=== PATIENT | female | born 1940 | race Caucasian/White ===

== ENCOUNTER 2020-03-31 19:44 | Observation (INO) | payer MEDICARE, BC ==
[2020-03-31] MEDS ORDERED: ONDANSETRON 4 MG/2 ML VIAL IVP STA (20:25)
[2020-03-31] MEDS ORDERED: SODIUM CHLORIDE 0.9% 500 ML 500 ML IV STA (20:25)
[2020-03-31 20:45] LABS: Basophils # (A) 0.1 k/uL (0-0.2); Basophils % (A) 0 %; Eosinophils # (A) 0.1 k/uL (0-0.7); Eosinophils % (A) 1 %; HCT 41.6 % (34.0-46.0); HGB 14.4 gm/dL (11.4-16.0); Lymphocytes # (A) 0.7 k/uL (1.0-4.8); Lymphocytes % (A) 3 %; MCH 30.6 pg (25.0-35.0); MCHC 34.5 g/dL (31.0-37.0); MCV 88.6 fL (80.0-100.0); Mean Platelet Volume 7.1; Monocytes # (A) 0.7 k/uL (0-1.0); Monocytes % (A) 3 %; Neutrophils # (A) 18.4 k/uL (1.3-7.7); Neutrophils % (A) 92 %; Platelet Count 301 k/uL (150-450); RBC 4.69 m/uL (3.80-5.40); RDW 12.4 % (11.5-15.5)
[2020-03-31 20:48] LABS: Appearance,Urine Clear (Clear); Bilirubin,Urine Negative (Negative); Blood,Urine Negative (Negative); Color,Urine Yellow; Glucose,Urine (UA) Negative (Negative); Ketones,Urine Negative (Negative); Leukocyte Esterase,Urine Negative (Negative); Nitrite,Urine Negative (Negative); Protein,Urine Negative (Negative)
[2020-03-31 20:56] LABS: ALT 18 U/L (4-34); AST 24 U/L (14-36); African American GFR (CKD) >90 (>60 ml/min/1.73 sqM); Albumin 4.3 g/dL (3.5-5.0); Alkaline Phosphatase 94 U/L (38-126); Anion Gap 10 mmol/L; Blood Urea Nitrogen 20 mg/dL (7-17); Calcium 10.3 mg/dL (8.4-10.2); Carbon Dioxide 23 mmol/L (22-30); Chloride 100 mmol/L (98-107); Glucose 122 mg/dL (74-99); Lipase 70 U/L (23-300); Non-African American GFR(CKD) 87 (>60 ml/min/1.73 sqM); Sodium 133 mmol/L (137-145); Total Bilirubin 0.7 mg/dL (0.2-1.3)
[2020-03-31 21:00] LABS: INR 0.9 (<1.2); Prothrombin Time 10.1 sec (9.0-12.0)
[2020-03-31 21:03] LABS: Partial Thromboplastin Time 21.7 sec (22.0-30.0)
[2020-03-31] MEDS ORDERED: cefTRIAXone IN SWFI 1,000 MG/10 ML SYRINGE IVP STA (21:15)
[2020-03-31] MEDS ORDERED: metroNIDAZOLE-NS PMX 500 MG in SALINE 1 100ML.BAG IVPB STA (21:15)
--- NOTE | 2020-03-31 21:41 | CT ---
EXAMINATION TYPE: CT abdomen pelvis w con DATE OF EXAM: 03/31/2020 COMPARISON: None available. HISTORY: Abdominal pain, hx of ischemic colitis CT DLP: 661.2 mGycm Automated exposure control for dose reduction was used. TECHNIQUE: Helical acquisition of images was performed from the lung bases through the pelvis. CONTRAST: Performed without Oral Contrast and with IV Contrast, patient injected with 100 mL of Isovue 300. FINDINGS: LUNG BASES: No significant abnormality is appreciated. LIVER/GB: No significant abnormality is appreciated. PANCREAS: No significant abnormality is seen. SPLEEN: No significant abnormality is seen. ADRENALS: No significant abnormality is seen. 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 2 to 3 mm benign-appearing righ t renal cyst. FREE AIR: No free air is visualized. RETROPERITONEAL ADENOPATHY: None visualized REPRODUCTIVE ORGANS: No significant abnormality is seen URINARY BLADDER: No significant abnormality is seen. PELVIC ADENOPATHY: None visualized. OSSEOUS STRUCTURES: No acute abnormality is seen. Chronic appearing moderate T11 compression fractur e. BOWEL: Diffuse moderate wall thickening of the descending colon with mild surrounding fat stranding. No bowel obstruction, free air or fluid. Small hiatal hernia status post prior post surgical changes . Colonic diverticulosis. OTHER: None IMPRESSION: DIFFUSE WALL THICKENING OF THE DESCENDING COLON WITH ASSOCIATED MILD INFLAMMATORY CHANGES, COMPATIBLE WITH COLITIS IN THE APPROPRIATE CLINICAL SETTING. COLONOSCOPY CORRELATION MAY BE OBTAINED INDICAT ED. NO BOWEL OBSTRUCTION, FREE AIR OR FLUID. Chronic findings as above.
--- NOTE | 2020-03-31 22:12 | ED ---
Nausea/Vomiting/Diarrhea HPI - General Chief complaint: Nausea/Vomiting/Diarrhea Stated complaint: NVD Time Seen by Provider: 03/31/20 19:50 Source: patient Mode of arrival: ambulatory Limitations: no limitations - History of Present Illness Initial comments: 80-year-old female past medical history of hypertension, colitis, reflux and presents to the emergency department with reported left lower quadrant abdominal pain, nausea and vomiting. Reports that her symptoms started this morning. She was in [place] and had tickets to fly back to [place]. Reports that she spent the majority of the flight in the bathroom with nausea, dry heaves and diarrhea. Denies any black or bloody stools. No fevers or chills. Denies any changes in her urination. Previous history of appendectomy and hernia repair. States that she does have history of similar in the past as she has a history of ischemic colitis. Takes a baby aspirin at home for anticoagulation. No other alleviating, precipitating or modifying factors - Related Data Home Medications Medication Instructions Recorded Confirmed Calcium Citrate 250 mg PO DAILY 03/31/20 03/31/20 Cholecalciferol [Vitamin D3 (25 25 mcg PO DAILY 03/31/20 03/31/20 Mcg = 1000 Iu)] FLUoxetine HCL [PROzac] 10 mg PO TID 03/31/20 03/31/20 Fluticasone Nasal [place] [Flonase 1 spray EA NOSTRIL BID PRN 03/31/20 03/31/20 Nasal [place]] Ginkgo Biloba 500 mg PO DAILY 03/31/20 03/31/20 Glucosam/Oscar-Msm1/C/Jairon/Bosw 1 tab PO DAILY 03/31/20 03/31/20 [Glucosamine-Chondroitin Tablet] Hydrochlorothiazide 12.5 mg PO HS 03/31/20 03/31/20 [hydroCHLOROthiazide] Ibuprofen [Motrin Ib] 800 mg PO BID PRN 03/31/20 03/31/20 Losartan Potassium [Cozaar] 100 mg PO HS 03/31/20 03/31/20 Magnesium Oxide 400 mg PO DAILY 03/31/20 03/31/20 Multivitamins, Thera [Multivitamin 1 tab PO DAILY 03/31/20 03/31/20 (formulary)] Omeprazole 20 mg PO DAILY 03/31/20 03/31/20 Pravastatin Sodium 80 mg PO HS 03/31/20 03/31/20 Ubidecarenone [Co Q-10] 100 mg PO DAILY 03/31/20 03/31/20 Previous Rx's Medication Instructions Recorded Amoxic-Pot Clav 875-125Mg 1 tab PO BID 5 Days #10 tab 04/01/20 [Augmentin 875-125] Allergies Allergy/AdvReac Type Severity Reaction Status Date / Time levofloxacin [From Levaquin] Allergy Unknown Verified 03/31/20 22:11 Review of Systems ROS Statement: Those systems with pertinent positive or pertinent negative responses have been documented in the HPI. ROS Other: All systems not noted in ROS Statement are negative. Past Medical History Past Medical History: GERD/Reflux, Hypertension Additional Past Medical History / Comment(s): colitis History of Any Multi-Drug Resistant Organisms: None Reported Past Surgical History: Appendectomy, Hernia Repair, Orthopedic Surgery Past Psychological History: No Psychological Hx Reported Smoking Status: Former smoker Past Alcohol Use History: None Reported Past Drug Use History: None Reported General Exam Limitations: no limitations General appearance: alert, in no apparent distress Head exam: Present: atraumatic, normocephalic, normal inspection Eye exam: Present: normal appearance, PERRL, EOMI. Absent: scleral icterus, conjunctival injection, periorbital swelling ENT exam: Present: normal exam, mucous membranes moist Neck exam: Present: normal inspection. Absent: tenderness, meningismus, lymphadenopathy Respiratory exam: Present: normal lung sounds bilaterally. Absent: respiratory distress, wheezes, rales, rhonchi, stridor Cardiovascular Exam: Present: regular rate, normal rhythm, normal heart sounds. Absent: systolic murmur, diastolic murmur, rubs, gallop, clicks GI/Abdominal exam: Present: soft, tenderness (llq), normal bowel sounds. Absent: distended, guarding, rebound, rigid Extremities exam: Present: normal inspection, full ROM, normal capillary refill. Absent: tenderness, pedal edema, joint swelling, calf tenderness Back exam: Present: normal inspection Neurological exam: Present: alert, oriented X3, CN II-XII intact Psychiatric exam: Present: normal affect, normal mood Skin exam: Present: warm, dry, intact, normal color. Absent: rash Course Vital Signs 03/31/20 03/31/20 03/31/20 19:47 21:30 22:01 Temperature 98.6 F Pulse Rate 78 56 L 56 L Respiratory 18 20 20 Rate Blood Pressure 197/97 141/69 135/78 O2 Sat by Pulse 96 99 97 Oximetry 03/31/20 22:46 Temperature 98.0 F Pulse Rate 59 L Respiratory 20 Rate Blood Pressure 133/69 O2 Sat by Pulse 96 Oximetry Medical Decision Making - Medical Decision Making Upon arrival patient is placed into room 11. A thorough history and physical exam was performed. IV is established and the patient is given 4 mg of Zofran for nausea as well as a 500 bolus of normal saline. Laboratory studies are conducted. They are reviewed and demonstrated a white count of 20,000. Sodium 133. Patient is sent for CT of the abdomen and pelvis which demonstrates a descending colitis. Due to leukocytosis and mild hyponatremia I did recommend overnight observation for which the patient did agree to. Lactic acid normal at this time and therefore will hold off on anticoagulation. Spoke with Dr. Bryson who agreed to admit the patient. Rocephin and Flagyl ordered as well as blood cultures. Patient remained in stable condition awaiting a bed - Lab Data Result diagrams: 04/01/20 06:13 04/01/20 06:13 Lab Results 03/31/20 03/31/20 03/31/20 Range/Units 20:36 20:36 20:36 WBC 20.0 H (3.8-10.6) k/uL RBC 4.69 (3.80-5.40) m/uL Hgb 14.4 (11.4-16.0) gm/dL Hct 41.6 (34.0-46.0) % MCV 88.6 (80.0-100.0) fL MCH 30.6 (25.0-35.0) pg MCHC 34.5 (31.0-37.0) g/dL RDW 12.4 (11.5-15.5) % Plt Count 301 (150-450) k/uL MPV 7.1 Neutrophils % 92 % Lymphocytes % 3 % Monocytes % 3 % Eosinophils % 1 % Basophils % 0 % Neutrophils # 18.4 H (1.3-7.7) k/uL Lymphocytes # 0.7 L (1.0-4.8) k/uL Monocytes # 0.7 (0-1.0) k/uL Eosinophils # 0.1 (0-0.7) k/uL Basophils # 0.1 (0-0.2) k/uL PT 10.1 (9.0-12.0) sec INR 0.9 (<1.2) APTT 21.7 L (22.0-30.0) sec Sodium (137-145) mmol/L Potassium (3.5-5.1) mmol/L Chloride (98-107) mmol/L Carbon Dioxide (22-30) mmol/L Anion Gap mmol/L BUN (7-17) mg/dL Creatinine (0.52-1.04) mg/dL Est GFR (CKD-EPI)AfAm (>60 ml/min/1.73 sqM) Est GFR (CKD-EPI)NonAf (>60 ml/min/1.73 sqM) Glucose (74-99) mg/dL Plasma Lactic Acid Chris (0.7-2.0) mmol/L Calcium (8.4-10.2) mg/dL Total Bilirubin (0.2-1.3) mg/dL AST (14-36) U/L ALT (4-34) U/L Alkaline Phosphatase (38-126) U/L Total Protein (6.3-8.2) g/dL Albumin (3.5-5.0) g/dL Lipase (23-300) U/L Urine Color Yellow Urine Appearance Clear (Clear) Urine pH 7.0 (5.0-8.0) Ur Specific [place] 1.020 (1.001-1.035) Urine Protein Negative (Negative) Urine Glucose (UA) Negative (Negative) Urine Ketones Negative (Negative) Urine Blood Negative (Negative) Urine Nitrite Negative (Negative) Urine Bilirubin Negative (Negative) Urine Urobilinogen 2.0 (<2.0) mg/dL Ur Leukocyte Esterase Negative (Negative) Coronavirus (PCR) (Not Detectd) 03/31/20 03/31/20 03/31/20 Range/Units 20:36 20:36 22:09 WBC (3.8-10.6) k/uL RBC (3.80-5.40) m/uL Hgb (11.4-16.0) gm/dL Hct (34.0-46.0) % MCV (80.0-100.0) fL MCH (25.0-35.0) pg MCHC (31.0-37.0) g/dL RDW (11.5-15.5) % Plt Count (150-450) k/uL MPV Neutrophils % % Lymphocytes % % Monocytes % % Eosinophils % % Basophils % % Neutrophils # (1.3-7.7) k/uL Lymphocytes # (1.0-4.8) k/uL Monocytes # (0-1.0) k/uL Eosinophils # (0-0.7) k/uL Basophils # (0-0.2) k/uL PT (9.0-12.0) sec INR (<1.2) APTT (22.0-30.0) sec Sodium 133 L (137-145) mmol/L Potassium 4.0 (3.5-5.1) mmol/L Chloride 100 (98-107) mmol/L Carbon Dioxide 23 (22-30) mmol/L Anion Gap 10 mmol/L BUN 20 H (7-17) mg/dL Creatinine 0.62 (0.52-1.04) mg/dL Est GFR (CKD-EPI)AfAm >90 (>60 ml/min/1.73 sqM) Est GFR (CKD-EPI)NonAf 87 (>60 ml/min/1.73 sqM) Glucose 122 H (74-99) mg/dL Plasma Lactic Acid Chris 1.1 (0.7-2.0) mmol/L Calcium 10.3 H (8.4-10.2) mg/dL Total Bilirubin 0.7 (0.2-1.3) mg/dL AST 24 (14-36) U/L ALT 18 (4-34) U/L Alkaline Phosphatase 94 (38-126) U/L Total Protein 7.0 (6.3-8.2) g/dL Albumin 4.3 (3.5-5.0) g/dL Lipase 70 (23-300) U/L Urine Color Urine Appearance (Clear) Urine pH (5.0-8.0) Ur Specific [place] (1.001-1.035) Urine Protein (Negative) Urine Glucose (UA) (Negative) Urine Ketones (Negative) Urine Blood (Negative) Urine Nitrite (Negative) Urine Bilirubin (Negative) Urine Urobilinogen (<2.0) mg/dL Ur Leukocyte Esterase (Negative) Coronavirus (PCR) Not Detected (Not Detectd) Disposition Clinical Impression: Colitis, Leukocytosis, Abdominal pain Disposition: ADMITTED IP TO THIS HOSP Condition: Stable Is patient prescribed a controlled substance at d/c from ED?: No Decision to Admit Reason: Admit from EC Decision Date: 03/31/20 Decision Time: 22:19
[2020-03-31] MEDS ORDERED: NALOXONE 0.4 MG/ML 1 ML VIAL IV PRN (22:19)
[2020-03-31] MEDS ORDERED: ONDANSETRON 4 MG/2 ML VIAL IVP PRN (22:19)
[2020-03-31] MEDS ORDERED: SODIUM CHLORIDE 0.9% 500 ML 500 ML IV ONE (22:30)
[2020-03-31] MEDS: SODIUM CHLORIDE 0.9% 1,000 ML IV SCH (22:45)
[2020-03-31] MEDS ORDERED: ACETAMINOPHEN TAB 325 MG TAB PO STA (23:05)
[2020-04-01] MEDS ORDERED: MORPHINE SULFATE 2 MG/ML SYRINGE IVP PRN (01:54)
--- NOTE | 2020-04-01 01:54 | P.HPIM ---
History of Present Illness H&P Date: 03/31/20 Chief Complaint: diarrhea , abd pain 80 year old female with history of Hypertension , stroke , Ischemic colitis patient has been in [place] , and she was traveling back today, when suddenly at 10 in the morning , she started having watery diarrhea , she still traveled, but symptoms got worse, with nausea, dry heaving ,and frequent watery diarrhea, denies any bleeding . her last meal was the night before when she had dinner, her shared food and place with her, he is asymptomatic, she denies any fever, chills, or urinary changes. she denies any sick contacts. her flight was terrible due to these symptoms, and started having LLQ abd discomfort radiating to the rest of the belly, pain vague, 5/10 in severity , worse when she touches her belly. she denies any changes inher medications. after landing , her symptoms persisted, and she came straight to the hospital . she reports history of ischemic colitis years ago , and last colonoscopy was back in August , she was told that she has "ischemic changes" in the ED , workup showed elevated WBC, CT abd showed descending colitis , lactic acid negative , and vital signs stable patient admitted for GI eval, symptomatic control and IVF hydration , due to intractable nausea and vomiting Review of Systems Pertinent positives as noted in HPI. All other systems were reviewed and are negative Past Medical History Past Medical History: GERD/Reflux, Hypertension Additional Past Medical History / Comment(s): colitis History of Any Multi-Drug Resistant Organisms: None Reported Past Surgical History: Appendectomy, Hernia Repair, Orthopedic Surgery Past Psychological History: No Psychological Hx Reported Smoking Status: Former smoker Past Alcohol Use History: None Reported Past Drug Use History: None Reported Medications and Allergies Home Medications Medication Instructions Recorded Confirmed Type Calcium Citrate 250 mg PO DAILY 03/31/20 03/31/20 History Cholecalciferol [Vitamin D3 (25 25 mcg PO DAILY 03/31/20 03/31/20 History Mcg = 1000 Iu)] FLUoxetine HCL [PROzac] 10 mg PO TID 03/31/20 03/31/20 History Fluticasone Nasal [place] [Flonase 1 spray EA NOSTRIL BID PRN 03/31/20 03/31/20 History Nasal [place]] Ginkgo Biloba 500 mg PO DAILY 03/31/20 03/31/20 History Glucosam/Oscar-Msm1/C/Jairon/Bosw 1 tab PO DAILY 03/31/20 03/31/20 History [Glucosamine-Chondroitin Tablet] Hydrochlorothiazide 12.5 mg PO HS 03/31/20 03/31/20 History [hydroCHLOROthiazide] Ibuprofen [Motrin Ib] 800 mg PO BID PRN 03/31/20 03/31/20 History Losartan Potassium [Cozaar] 100 mg PO HS 03/31/20 03/31/20 History Magnesium Oxide 400 mg PO DAILY 03/31/20 03/31/20 History Multivitamins, Thera [Multivitamin 1 tab PO DAILY 03/31/20 03/31/20 History (formulary)] Omeprazole 20 mg PO DAILY 03/31/20 03/31/20 History Pravastatin Sodium 80 mg PO HS 03/31/20 03/31/20 History Ubidecarenone [Co Q-10] 100 mg PO DAILY 03/31/20 03/31/20 History Allergies Allergy/AdvReac Type Severity Reaction Status Date / Time levofloxacin [From Levaquin] Allergy Unknown Verified 03/31/20 22:11 Physical Exam Vitals: Vital Signs Temp Pulse Resp BP Pulse Ox 03/31/20 22:46 98.0 F 59 L 20 133/69 96 03/31/20 22:01 56 L 20 135/78 97 03/31/20 21:30 56 L 20 141/69 99 03/31/20 19:47 98.6 F 78 18 197/97 96 Intake and Output 03/31/20 03/31/20 04/01/20 14:59 22:59 06:59 Other: Voiding Method Toilet Weight 61.235 kg Constitutional: No acute distress, conversant, pleasant Eyes: Anicteric sclerae, moist conjunctiva, Pupils equal round reactive to light ENMT: NC/AT Oropharynx clear, no erythema, or exudates Neck: Supple, FROM, no masses, or JVD No carotid bruits No thyromegaly Lungs: Clear to auscultation Clear to percussion Normal respiratory effort, no accessory muscle use Cardiovascular: Heart regular in rate and rhythm, No murmurs, gallops, or rubs No peripheral edema Abdominal: Soft slight discomfort with deep palpation , no guarding, rebound or rigidity Abdomen moving with respiration Normoactive bowel sounds No hepatomegaly, No splenomegaly No palpable mass No abdominal wall hernia noted Skin: Normal temperature, tone, texture, turgor No induration No subcutaneous nodules No rash, lesions No ulcers Extremities: No digital cyanosis No clubbing Pedal pulses intact and symmetrical Radial pulses intact and symmetrical No calf tenderness Psychiatric: Alert and oriented to person, place and time Appropriate affect fair judgement Neuro Muscles Strength 5/5 in all 4 extremities Sensation to light touch grossly present throughout Cranial nerves II-XII grossly intact No focal sensory deficits Lymphatics: no palpable cervical or supraclavicular , or inguinal lymph nodes Results CBC & Chem 7: 03/31/20 20:36 03/31/20 20:36 Labs: Abnormal Lab Results - Last 24 Hours (Table) 03/31/20 03/31/20 03/31/20 Range/Units 20:36 20:36 20:36 WBC 20.0 H (3.8-10.6) k/uL Neutrophils # 18.4 H (1.3-7.7) k/uL Lymphocytes # 0.7 L (1.0-4.8) k/uL APTT 21.7 L (22.0-30.0) sec Sodium 133 L (137-145) mmol/L BUN 20 H (7-17) mg/dL Glucose 122 H (74-99) mg/dL Calcium 10.3 H (8.4-10.2) mg/dL Assessment and Plan Assessment: intractable nausea and vomiting acute gastroenteritis, rule out Colitis plan follow up cultures stool studies GI eval symptomatic control IVF hydration clear liquid diet empiric antibiotics with rocephine and flagyl follow up AM labs imaging reviewed , CT showing descending colon colitis chronic conditions hypertension , controlled GERD resume home meds CODE STATUS:full code DVT prophylaxis: heparin sc tid Discussed with: Patient, ER, RN Anticipated length of stay <than [address]: home A total of 70 minutes was spent on the care of this complex patient more than 50% of the time was spent in counseling and care coordination.
[2020-04-01] MEDS: metroNIDAZOLE-NS PMX 500 MG in SALINE 1 100ML.BAG IVPB SCH ×2 (06:03→13:21)
[2020-04-01 07:02] LABS: Basophils # (A) 0.1 k/uL (0-0.2); Basophils % (A) 1 %; Eosinophils # (A) 0.1 k/uL (0-0.7); Eosinophils % (A) 2 %; HCT 38.4 % (34.0-46.0); Lymphocytes # (A) 1.5 k/uL (1.0-4.8); Lymphocytes % (A) 16 %; MCH 30.4 pg (25.0-35.0); MCHC 33.9 g/dL (31.0-37.0); MCV 89.9 fL (80.0-100.0); Mean Platelet Volume 7.1; Monocytes # (A) 0.6 k/uL (0-1.0); Monocytes % (A) 6 %; Neutrophils # (A) 7.1 k/uL (1.3-7.7); Neutrophils % (A) 74 %; Platelet Count 282 k/uL (150-450); RBC 4.27 m/uL (3.80-5.40); RDW 12.7 % (11.5-15.5); WBC 9.5 k/uL (3.8-10.6)
[2020-04-01 07:25] LABS: Calcium 9.7 mg/dL (8.4-10.2); Potassium 4.2 mmol/L (3.5-5.1)
[2020-04-01] MEDS ORDERED: PANTOPRAZOLE 40 MG TABLET PO SCH (07:30)
[2020-04-01] MEDS: FLUoxetine HCL 10 MG CAP PO SCH ×2 (07:59→17:16)
[2020-04-01] MEDS: HEPARIN SODIUM,PORCINE 5,000 UNIT/ML 1 ML VIAL SQ SCH ×2 (07:59→17:16)
[2020-04-01] MEDS: SODIUM CHLORIDE 0.9% 1,000 ML IV SCH (10:42)
[2020-04-01] MEDS ORDERED: ACETAMINOPHEN TAB 325 MG TAB PO PRN (10:53)
[2020-04-01 11:48] VITALS: BP 128/65; PULSE 52; RESP 17; TEMP 97.9
--- NOTE | 2020-04-01 16:02 | P.DS ---
Providers Date of admission: 03/31/20 22:23 Expected date of discharge: 04/01/20 Attending physician: Joe Khalil MD Primary care physician: Physician Nonstaff Hospital Course: Discharge Diagnosis: Probable ischemic colitis Intractable diarrhea, resolved HTN GERD Hx of ischemic colitis Hx of CVA Hospital Course: Mrs. Barros this 80-year-old female with a history of prior ischemic colitis, CVA, GERD, and hypertension who presented with intractable diarrhea and left lower quadrant pain. Suddenly during a flight home from [place]. On arrival she was hypertensive with a blood pressure of 197/97. This resolved spontaneously and was felt to be secondary to pain. Laboratory analysis. showed a white blood cell count of 20, sodium 133, BUN 20, glucose 122, calcium 10.3. CT abdomen and pelvis showed diffuse wall thickening in the descending colon with associated mild inflammatory changes patent compatible with colitis. The morning of 04/01 her diarrhea had completely resolved. Her pain was almost completely resolved. She was tolerating a clear liquid diet without any difficulties. Her white blood cell count had normalized. Patient reported that symptoms have been consistent with her prior ischemic colitis. She follows with a media relations manager out of [facility] and she takes aspirin daily. She has had significant workup for ischemic colitis in the past and 2 prior hospitalizations. She was able to tolerate a full liquid diet and was subsequently determined stable for discharge home. She'll follow-up with PCP in [facility] she is visiting here as well as her media relations manager. She will complete 5 more days of Augmentin. Patient seen and examined at bedside. Pain is improved, nausea improved, diarrhea is resolved. No chest pain or shortness of breath. Vital signs reviewed and stable. General: non toxic, no distress, appears at stated age Derm: warm, dry Head: atraumatic, normocephalic, symmetric Eyes: EOMI, no lid lag, anicteric sclera Mouth: no lip lesion, mucus membranes moist Cardiovascular: S1S2 reg, no murmur, positive posterior tibial pulse bilateral, Lungs: CTA bilateral, no rhonchi, no rales , no accessory muscle use Abdominal: soft, tender to palpation left lower quadrant, no guarding, no appreciable organomegaly Ext: no gross muscle atrophy, no edema, no contractures Neuro: CN II-XI grossly intact, no focal neuro deficits Psych: Alert, oriented, appropriate affect A total of 25 minutes of time were spent preparing this complex discharge summary . Patient Condition at Discharge: Stable Plan - Discharge Summary Discharge Rx Participant: No New Discharge Prescriptions: New Amoxic-Pot Clav 875-125Mg [Augmentin 875-125] 1 tab PO BID 5 Days #10 tab Continue Cholecalciferol [Vitamin D3 (25 Mcg = 1000 Iu)] 25 mcg PO DAILY Calcium Citrate 250 mg PO DAILY Ubidecarenone [Co Q-10] 100 mg PO DAILY Multivitamins, Thera [Multivitamin (formulary)] 1 tab PO DAILY Magnesium Oxide 400 mg PO DAILY Ginkgo Biloba 500 mg PO DAILY FLUoxetine HCL [PROzac] 10 mg PO TID Pravastatin Sodium 80 mg PO HS Losartan Potassium [Cozaar] 100 mg PO HS Ibuprofen [Motrin Ib] 800 mg PO BID PRN PRN Reason: Pain Or Fever > 100.5 Fluticasone Nasal [place] [Flonase Nasal [place]] 1 spray EA NOSTRIL BID PRN PRN Reason: Allergy Symptoms Omeprazole 20 mg PO DAILY Hydrochlorothiazide [hydroCHLOROthiazide] 12.5 mg PO HS Glucosam/Oscar-Msm1/C/Jairon/Bosw [Glucosamine-Chondroitin Tablet] 1 tab PO DAILY Discharge Medication List Calcium Citrate 250 mg PO DAILY 03/31/20 [History] Cholecalciferol [Vitamin D3 (25 Mcg = 1000 Iu)] 25 mcg PO DAILY 03/31/20 [History] FLUoxetine HCL [PROzac] 10 mg PO TID 03/31/20 [History] Fluticasone Nasal [place] [Flonase Nasal [place]] 1 spray EA NOSTRIL BID PRN 03/31/20 [History] Ginkgo Biloba 500 mg PO DAILY 03/31/20 [History] Glucosam/Oscar-Msm1/C/Jairon/Bosw [Glucosamine-Chondroitin Tablet] 1 tab PO DAILY 03/31/20 [History] Hydrochlorothiazide [hydroCHLOROthiazide] 12.5 mg PO HS 03/31/20 [History] Ibuprofen [Motrin Ib] 800 mg PO BID PRN 03/31/20 [History] Losartan Potassium [Cozaar] 100 mg PO HS 03/31/20 [History] Magnesium Oxide 400 mg PO DAILY 03/31/20 [History] Multivitamins, Thera [Multivitamin (formulary)] 1 tab PO DAILY 03/31/20 [History] Omeprazole 20 mg PO DAILY 03/31/20 [History] Pravastatin Sodium 80 mg PO HS 03/31/20 [History] Ubidecarenone [Co Q-10] 100 mg PO DAILY 03/31/20 [History] Amoxic-Pot Clav 875-125Mg [Augmentin 875-125] 1 tab PO BID 5 Days #10 tab 04/01/20 [Rx] Follow up Appointment(s)/Referral(s): Nonstaff,Physician [Primary Care Provider] - 1-2 days Activity/Diet/Wound Care/Special Instructions: Activity: as tolerated Diet: soft bland diet for 5 days then increase if pain is improved. Special Instructions: follow up with a primary doctor in 1week, gastroenterology as needed Hold all vitamins and supplements for the next week Discharge Disposition: HOME SELF-CARE
[2020-04-01] MEDS ORDERED: LOSARTAN 50 MG TAB PO SCH (21:00)
[2020-04-01] MEDS ORDERED: PRAVASTATIN SODIUM 80 MG TAB PO SCH (21:00)
== END 2020-04-01 18:44 | disposition home or self-care (01) ==
LOC: EC 19:44 → 5NMEDONC 22:23 → INTOOBSV 22:23 → 5NMEDONC 22:39
PROVIDERS: ADMIT Internal Medicine; ATTEND Internal Medicine
DX: R11.2 Nausea with vomiting, unspecified (principal); R19.7 Diarrhea, unspecified; R10.32 Left lower quadrant pain; I10 Essential (primary) hypertension; E87.1 Hypo-osmolality and hyponatremia; D72.829 Elevated white blood cell count, unspecified; K21.9 Gastro-esophageal reflux disease without esophagitis; Z86.73 Personal history of transient ischemic attack (TIA), and cerebral infarction without residual deficits; Z87.19 Personal history of other diseases of the digestive system; Z90.49 Acquired absence of other specified parts of digestive tract; Z79.82 Long term (current) use of aspirin; Z79.899 Other long term (current) drug therapy; Z88.1 Allergy status to other antibiotic agents; Z87.891 Personal history of nicotine dependence; Z20.822 Contact with and (suspected) exposure to COVID-19
CPT/HCPCS: 36415; 74177; 80048; 80053; 81003; 83605; 83690; 85025; 85610; 85730; 87040; 87635; 96365; 96366; 96375; 96376; 99285